=== PATIENT | female | born 1995 | race Two or more races ===

== ENCOUNTER 2020-05-28 19:02 | Emergency (ER) | payer SELFPAY ==
--- NOTE | 2020-05-28 19:26 | ER Document Report ---
ED Medical Screen (RME) - General Chief Complaint: Flank Pain Stated Complaint: RIGHT FLANK PAIN Time Seen by Provider: 05/28/20 19:19 Notes: Patient presents complaining of right upper quadrant abdominal pain for the past 2 weeks it became constant over the past week. Patient states pain is worse with movement and deep inspiration. Patient states pain does radiate to her back. Patient denies any nausea vomiting or diarrhea. Patient denies any fever. Patient denies any urinary symptoms. Patient reports mild cough. I have greeted and performed a rapid initial assessment of this patient. A comprehensive ED assessment and evaluation of the patient, analysis of test results and completion of the medical decision making process will be conducted by additional ED providers. Physical Exam - Vital signs Vitals: Temp Pulse Resp BP Pulse Ox 98.3 F 80 20 151/87 H 100 05/28/20 19:06 05/28/20 19:06 05/28/20 19:06 05/28/20 19:06 05/28/20 19:06 - Abdominal Tenderness: Tender - Right upper quadrant tenderness, Guarding Course - Vital Signs Vital signs: Temp Pulse Resp BP Pulse Ox 98.3 F 80 20 151/87 H 100 05/28/20 19:06 05/28/20 19:06 05/28/20 19:06 05/28/20 19:06 05/28/20 19:06
[2020-05-28 20:03] LABS: ABSOLUTE BASOPHILS # (AUTO) 0.1 10^3/uL (0.0-0.2); ABSOLUTE EOSINOPHILS # (AUTO) 0.2 10^3/uL (0.0-0.6); ABSOLUTE LYMPHOCYTES (AUTO) 2.9 10^3/uL (0.5-4.7); ABSOLUTE MONOCYTES (AUTO) 0.8 10^3/uL (0.1-1.4); ABSOLUTE NEUT (AUTO) 4.2 10^3/uL (1.7-8.2); BASOPHILS % (AUTO) 0.7 % (0-2); HEMATOCRIT 40.8 % (36.0-47.0); HEMOGLOBIN 13.6 g/dL (12.0-15.5); LYMPHOCYTES % (AUTO) 35.9 % (13-45); MEAN CORPUSCULAR HGB CONC 33.3 g/dL (32.0-36.0); MEAN CORPUSCULAR VOLUME 84 fl (80-97); MONOCYTES % (AUTO) 10.1 % (3-13); PLATELET COUNT 244 10^3/uL (150-450); RED BLOOD COUNT 4.86 10^6/uL (3.72-5.28); RED CELL DISTRIBUTION WIDTH 13.1 % (11.5-14.0); SEGMENTED NEUTROPHILS % (AUTO) 51.3 % (42-78); TOTAL CELLS COUNTED % (AUTO) 100 %; WHITE BLOOD COUNT 8.2 10^3/uL (4.0-10.5)
[2020-05-28 20:19] LABS: APPEARANCE,URINE CLEAR; BILIRUBIN,URINE NEGATIVE (NEGATIVE); COLOR,URINE STRAW; GLUCOSE, URINE NEGATIVE (NEGATIVE); KETONES,URINE NEGATIVE (NEGATIVE); LEUKOCYTE ESTERASE,URINE NEGATIVE (NEGATIVE); NITRITE,URINE NEGATIVE (NEGATIVE); PROTEIN,URINE NEGATIVE (NEGATIVE); URINE SPECIFIC GRAVITY 1.005; UROBILINOGEN,URINE NEGATIVE mg/dL (<2.0)
[2020-05-28 20:35] LABS: ALBUMIN 4.9 g/dL (3.5-5.0); ALKALINE PHOSPHATASE 69 U/L (38-126); ANION GAP 10 (5-19); ASPARTATE AMINO TRANSFERASE 23 U/L (14-36); BILIRUBIN,DIRECT 0.2 mg/dL (0.0-0.4); BILIRUBIN,TOTAL 0.7 mg/dL (0.2-1.3); BLOOD UREA NITROGEN 6 mg/dL (7-20); CALCIUM 9.9 mg/dL (8.4-10.2); CARBON DIOXIDE 31 mmol/L (22-30); CHLORIDE 100 mmol/L (98-107); GLUCOSE 95 mg/dL (75-110); POTASSIUM 3.7 mmol/L (3.6-5.0); TOTAL PROTEIN 8.2 g/dL (6.3-8.2)
--- NOTE | 2020-05-28 21:37 | RADIOLOGY REPORT (SQ) ---
EXAM DESCRIPTION: U/S ABDOMEN LIMITED W/O DOP CLINICAL HISTORY: 25 years Female RUQ TECHNIQUE: Right upper quadrant ultrasound was performed. COMPARISON: None. FINDINGS: Pancreas: Poorly visualized given overlying bowel gas. Liver: Measures up to 13.3 cm and is homogeneous in appearance. Portal venous flow is hepatopedal, normal. Gallbladder: No gallstones. The gallbladder wall measures 1.2 mm. No pericholecystic fluid. However, technologist notes a positive sonographic Cano's sign. Common bile duct: 1.8 mm. Right kidney: Normal in appearance measuring up to 9.3 cm.. No hydronephrosis. IMPRESSION: 1. No cholelithiasis, pericholecystic fluid, or gallbladder wall thickening. However, technologist notes a positive sonographic Cano's sign. These findings are nonspecific. The possibility of acalculous cholecystitis is not excluded. If further evaluation is clinically indicated, HIDA could be considered.
--- NOTE | 2020-05-28 21:49 | RADIOLOGY REPORT (SQ) ---
AP Portable chest: 05/28/2020 8:48 PM [employer]ICER CHIEF History: 25-year old patient with right upper quadrant abdominal pain, cough. Comparison: None available Findings: The cardiomediastinal silhouette is normal in size. No pneumothorax is seen. No acute airspace opacities are seen. No discrete pleural effusion is apparent. Impression: No acute airspace opacities are seen.
[2020-05-28] MEDS ORDERED: NORMAL SALINE 1000 ML 1,000 ML IV ONE (23:04)
[2020-05-28] MEDS ORDERED: HYDROMORPHONE HCL INJ/PF 2 MG/ML AMPULE IV ONE (23:05)
[2020-05-28] MEDS ORDERED: ONDANSETRON HCL INJ/PF 4 MG/2 ML SDV IV ONE (23:05)
[2020-05-28] MEDS ORDERED: KETOROLAC TROMETHAMINE INJ/PF 30 MG/1 ML SDV IV ONE (23:05)
--- NOTE | 2020-05-28 23:14 | ER Document Report ---
ED GI/ - General Chief Complaint: Abdominal Pain Stated Complaint: RIGHT FLANK PAIN Time Seen by Provider: 05/28/20 19:19 Mode of Arrival: Ambulatory Information source: Patient Notes: ED Medical Screen (Ankit awad) - General Chief Complaint: Flank Pain Stated Complaint: RIGHT FLANK PAIN Time Seen by Provider: 05/28/20 19:19 Notes: Patient presents complaining of right upper quadrant abdominal pain for the past 2 weeks it became constant over the past week. Patient states pain is worse with movement and deep inspiration. Patient states pain does radiate to her back. Patient denies any nausea vomiting or diarrhea. Patient denies any feve r. Patient denies any urinary symptoms. Patient reports mild cough. MY NOTES 25-year-old female arrives with chief complaint of right upper quadrant abdominal pain chest interface area that has been present for more than 2 to 3 weeks. Patient reports she usually runs 2 miles a day with her dog and does sit ups on a daily basis. Over the last week however she has had severe pain that is inhibit her from exercising. It is difficult for her to breathe inspiration and touch the right distal anterior ribs without causing pain. Ultrasound today was negative chest x-ray today was negative. Her labs are within normal limits. Patient has a 4-year-old daughter at home who has no sick nesses. Her dog is normal active as well. Dog does not appear to be sick. Patient denies being around anyone with Covid. - Related Data Allergies/Adverse Reactions: No Known Allergies Allergy (Verified 05/28/20 21:52) Past Medical History - General Information source: Patient - Social History Smoking Status: Never Smoker Cigarette use (# per day): No Chew tobacco use (# tins/day): No Smoking Education Provided: No Frequency of alcohol use: Occasional Drug Abuse: None Lives with: Family Family History: Reviewed & Not Pertinent Patient has suicidal ideation: No Patient has homicidal ideation: No Pulmonary Medical History: Reports: Hx Asthma Past Surgical History: Reports: Hx Section - 2016, Hx Tonsillectomy Review of Systems - Review of Systems Constitutional: See HPI, Recent illness EENT: No symptoms reported Cardiovascular: See HPI, Chest pain Respiratory: No symptoms reported Gastrointestinal: See HPI, Abdominal pain Genitourinary: No symptoms reported Female Genitourinary: No symptoms reported Musculoskeletal: No symptoms reported Skin: No symptoms reported Hematologic/Lymphatic: No symptoms reported Neurological/Psychological: No symptoms reported Physical Exam - Vital signs Vitals: Temp Pulse Resp BP Pulse Ox 98.3 F 80 20 151/87 H 100 05/28/20 19:06 05/28/20 19:06 05/28/20 19:06 05/28/20 19:06 05/28/20 19:06 Interpretation: Normal - General General appearance: Appears well, Alert - HEENT Head: Normocephalic, Atraumatic Eyes: Normal Pupils: PERRL - Respiratory Respiratory status: No respiratory distress Chest status: Nontender Breath sounds: Normal Chest palpation: Normal - Cardiovascular Rhythm: Regular Heart sounds: Normal auscultation Murmur: No - Abdominal Inspection: Normal Distension: No distension Bowel sounds: Normal Tenderness: Tender - Tender right upper quadrant around rib margin and chest area patient is warm to touch as well. Organomegaly: No organomegaly - Rectal Hemorrhoids: Other - Deferred - Genitourinary Bimanuel exam: Other - Deferred - Back Back: Normal, Nontender - Extremities General upper extremity: Normal inspection, Nontender, Normal color, Normal ROM, Normal temperature General lower extremity: Normal inspection, Nontender, Normal color, Normal ROM, Normal temperature, Normal weight bearing. No: Amparo's sign - Neurological Neuro grossly intact: Yes Cognition: Normal Orientation: AAOx4 [place] Coma Scale Eye Opening: Spontaneous Gagan Coma Scale Verbal: Oriented [place] Coma Scale Motor: Obeys Commands [place] Coma Scale Total: 15 Speech: Normal Motor strength normal: LUE, RUE, LLE, RLE Sensory: Normal - Psychological Associated symptoms: Normal affect, Normal mood - Skin Skin Temperature: Warm Skin Moisture: Dry Skin Color: Normal Course - Vital Signs Vital signs: Temp Pulse Resp BP Pulse Ox 98.5 F 58 L 17 115/70 99 05/29/20 00:35 05/29/20 00:35 05/29/20 00:35 05/29/20 00:35 05/29/20 00:35 - Laboratory Results Result Diagrams: 05/28/20 19:44 05/28/20 19:44 Laboratory Results Interpreted: 05/28/20 19:44 Carbon Dioxide 31 H BUN 6 L Critical Laboratory Results Reviewed: No Critical Results Attending or Supervising Physician who Reviewed Labs: MARY TEJADA JR - Radiology Results Critical Radiology Results Reviewed: No Critical Results Attending or Supervising Physician who Reviewed Radiology: MARY TEJADA JR - EKG Interpretation by Me EKG shows normal: Sinus rhythm Rate: Normal Rhythm: NSR - 65 bpm heart rate with no ST elevation no ST depression but borderline T wave abnormalities anterior leads. This was read by myself and I agree with the EKG machine. Discharge - Discharge Clinical Impression: Costochondritis, acute Condition: Stable Disposition: HOME, SELF-CARE Additional Instructions: Follow-up with personal doctor this week return to ER as needed take medicines as directed encourage fluids avoid lifting bending or twisting. If symptoms con tinue you may have to get TOI antibody checked by PMD. You may want to use [id number] Voltaren gel which is around $9 at [facility] currently. Your CT scans of chest and abdomen were normal today as were your ultrasound. The tenderness of the costal margin indicates costochondritis. Prescriptions: Doxycycline Monohydrate 100 mg PO BID #20 capsule Chlorzoxazone [Parafon Forte Dsc 500 Mg Tablet] 500 mg PO BID PRN #20 tablet PRN Reason: Pain Scale Of 1 Forms: Return to Work
--- NOTE | 2020-05-29 01:45 | RADIOLOGY REPORT (SQ) ---
CT angiogram chest with contrast and CT abdomen and pelvis with contrast on 05/29/2020 at 12:32 AM CLINICAL INDICATION: Chest pain, right upper quadrant pain, back pain TECHNIQUE: Multiple axial images are obtained throughout the chest, abdomen and pelvis following the administration of IV contrast. Computer generated 3D reconstructions/MIPS were performed of the chest. This exam was performed according to our departmental dose-optimization program, which includes automated exposure control, adjustment of the mA and/or kV according to patient size and/or use of iterative reconstruction technique. Total DLP is 899.5 mGy*cm. COMPARISON: None FINDINGS: CHEST: There is minimal left basilar atelectasis on the initial scan through the chest without resolves on the scan through the abdomen and pelvis. The lungs are otherwise clear. There is no pleural or pericardial effusion. There is no thoracic adenopathy. There is no thoracic aortic aneurysm or dissection. There are no filling defects within the pulmonary arteries to suggest pulmonary embolus. No acute bony abnormality of the thorax is noted. ABDOMEN: The solid abdominal organs are unremarkable. There is no abdominal adenopathy. There is no free fluid or free air within the abdomen. The abdominal portion of the GI tract is unremarkable. Pelvis: The uterus is retroverted/retroflexed. Pelvic organs otherwise appear unremarkable by CT. No free fluid is noted in the pelvis. There is no pelvic adenopathy. The pelvic portion of the GI tract including the appendix is unremarkable. No bony abnormality is noted. IMPRESSION: 1. No evidence of pulmonary embolus. 2. No acute abnormality in the chest, abdomen or pelvis.
[2020-05-29 02:06] VITALS: BP 131/66
--- NOTE | 2020-05-29 09:46 | EKG REPORT ---
SEVERITY:- BORDERLINE ECG - SINUS RHYTHM BORDERLINE T ABNORMALITIES, ANTERIOR LEADS : Confirmed by: Malvin Mendez MD 29-May-2020 09:45:37
== END 2020-05-29 02:05 | disposition home or self-care (01) ==
LOC: ER 19:02
DX: M94.0 Chondrocostal junction syndrome [Tietze] (principal); R10.11 Right upper quadrant pain; R10.811 Right upper quadrant abdominal tenderness; J45.909 Unspecified asthma, uncomplicated; Z20.822 Contact with and (suspected) exposure to COVID-19
CPT/HCPCS: 93005; 99285; 96361; 96374; 96375; 36415; 82550; 83690; 84703; 85025; 87635; 80053; 81001; 84484; 85379; 71045; 76705; 71275; 74177; 93010; J1885; J1170; J2405; J7030; C9803